=== PATIENT | male | born 1965 | race Caucasian/White ===

== ENCOUNTER → 2020-10-18 | Outpatient (CLI) | payer MEDICARE ==
[2020-10-18 16:20] LABS: Basophils # (A) 0.1 k/uL (0-0.2); Basophils % (A) 1 %; Eosinophils % (A) 1 %; HCT 46.4 % (39.0-53.0); HGB 16.4 gm/dL (13.0-17.5); Lymphocytes # (A) 1.2 k/uL (1.0-4.8); Lymphocytes % (A) 15 %; MCH 37.7 pg (25.0-35.0); MCHC 35.3 g/dL (31.0-37.0); MCV 106.7 fL (80.0-100.0); Macrocytosis Slight; Mean Platelet Volume 8.2; Monocytes # (A) 0.6 k/uL (0-1.0); Monocytes % (A) 7 %; Neutrophils % (A) 76 %; Platelet Count 163 k/uL (150-450); RBC 4.35 m/uL (4.30-5.90); RDW 12.1 % (11.5-15.5); WBC 7.9 k/uL (3.8-10.6)
[2020-10-18 16:22] LABS: Appearance,Urine Clear (Clear); Bilirubin,Urine Negative (Negative); Blood,Urine Negative (Negative); Color,Urine Light Yellow; Glucose,Urine (UA) Negative (Negative); Ketones,Urine Negative (Negative); Leukocyte Esterase,Urine Negative (Negative); Nitrite,Urine Negative (Negative); Protein,Urine Trace (Negative); Specific Gravity,Urine 1.005 (1.001-1.035); Urobilinogen,Urine <2.0 mg/dL (<2.0)
[2020-10-18 16:29] LABS: Partial Thromboplastin Time 25.2 sec (22.0-30.0); Prothrombin Time 10.5 sec (9.0-12.0)
[2020-10-18 16:39] LABS: African American GFR (CKD) >90 (>60 ml/min/1.73 sqM); Anion Gap 6 mmol/L; Blood Urea Nitrogen 4 mg/dL (9-20); Carbon Dioxide 27 mmol/L (22-30); Chloride 98 mmol/L (98-107); Non-African American GFR(CKD) >90 (>60 ml/min/1.73 sqM); Potassium 4.1 mmol/L (3.5-5.1); Sodium 131 mmol/L (137-145)
== END | disposition home or self-care (01) ==
LOC: LABPAT 15:42
PROVIDERS: ATTEND Thoracic Surgery (Cardiothoracic Vascular Surgery)
DX: Z01.812 Encounter for preprocedural laboratory examination (principal); C34.90 Malignant neoplasm of unspecified part of unspecified bronchus or lung; Z20.822 Contact with and (suspected) exposure to COVID-19
CPT/HCPCS: 86900; 86901; 80051; 82565; 84520; 85025; 85610; 85730; 86850; 81003; 87086; 36415; U0003; C9803; U0005

== ENCOUNTER 2020-10-24 07:14 | Inpatient (IN) | payer MEDICARE ==
[2020-10-21 12:16] VITALS: BMI 25.8
[~2020-10-24 07:14] MED LIST: DEXAMETHASONE SOD PHOSPHATE 4 MG/ML 1 ML VIAL IV ONE; HYDROmorphone 0.5 MG/0.5 ML SYRINGE IVP PRN; LACTATED RINGERS 1,000 ML IV SCH; ONDANSETRON 4 MG/2 ML VIAL IVP ONE
[2020-10-24] MEDS ORDERED: MIDAZOLAM 2 MG/2 ML VIAL IVP ONE (08:09)
[2020-10-24] MEDS ORDERED: fentaNYL (PF) 50 MCG/ML 2 ML AMP IVP ONE (08:29)
[2020-10-24] MEDS ORDERED: SUCCINYLCHOLINE CHLORIDE 100 MG/5 ML SYR IV ONE (08:55)
[2020-10-24] MEDS ORDERED: fentaNYL (PF) 50 MCG/ML 2 ML AMP ONE (08:55)
[2020-10-24] MEDS ORDERED: PROPOFOL 10 MG/ML 20 ML VIAL IV ONE (08:55)
[2020-10-24] MEDS ORDERED: HYDROmorphone (PF) 1 MG/ML ONE (08:55)
[2020-10-24] MEDS ORDERED: SODIUM CHLORIDE 0.9% (PF) 10 ML VIAL ONE (08:55)
[2020-10-24] MEDS ORDERED: LIDOCAINE 1% INJ 10MG/ML (20 ML MDV) ONE (08:55)
[2020-10-24] MEDS ORDERED: KETAMINE 10 MG/ML 20 ML VIAL ONE (08:55)
[2020-10-24] MEDS ORDERED: NEOSTIGMINE 1 MG/ML 10 ML VIAL ONE (08:55)
[2020-10-24] MEDS ORDERED: GLYCOPYRROLATE 0.2 MG/ML 2 ML VIAL ONE (08:55)
[2020-10-24] MEDS ORDERED: ROCURONIUM 10 MG/ML (5 ML VIAL) IV ONE (08:55)
[2020-10-24] MEDS ORDERED: ROPIVACAINE 5 MG/ML 30 ML VIAL ONE (08:55)
[2020-10-24] MEDS ORDERED: MIDAZOLAM 2 MG/2 ML VIAL ONE (08:55)
[2020-10-24] MEDS ORDERED: DEXAMETHASONE SOD PHOSPHATE 4 MG/ML 1 ML VIAL ONE (08:55)
--- NOTE | 2020-10-24 09:08 | P.ANPRN ---
Procedure Note - Anesthesia - Nerve Block Performed Right Erector Spinae Single Time Out Performed: Yes Date of Procedure: 10/24/20 Procedure Start Time: : Procedure Stop Time: :35 Location of Patient: PreOp Indication: Requested by Surgeon Specifically requested for management of pain by DrMiranda: Colt oHrta Sedation Type: Sedate with meaningful contact maintained Preparation: Sterile Prep Position: Prone Needle Types: Pajunk Needle Gauge: 21 Ultrasound used to visualize needle placement: Yes Ultrasound used to observe medication spread: Yes Injectate: 0.5% Ropivacaine (see comment for volume) (20 ml +10 ml NS + Dexamethason 4 mg) Resistance on Injection: Normal Image Stored and Saved: Yes Events: Uneventful and Well Tolerated
[2020-10-24] MEDS ORDERED: LACTATED RINGERS 1,000 ML IV ONE (09:48)
[2020-10-24] MEDS ORDERED: BUPIVACAINE (PF) 0.5% 30 ML VIAL SQ ONE ×3 (09:51)
--- NOTE | 2020-10-24 10:27 | P.OP ---
Date of Procedure: 10/24/20 Preoperative Diagnosis: Enlarging cavitary nodule right upper lobe Postoperative Diagnosis: Same Procedure(s) Performed: Thoracoscopic wedge resection nodule right upper lobe Anesthesia: GETA Surgeon: Colt Horta Estimated Blood Loss (ml): 20 IV fluids (ml): 300 Pathology: other (Wedge resection nodule right upper lobe sent for permanent pathology as well as culture including routine anaerobic AFB and fungus) Condition: stable Disposition: PACU Indications for Procedure: 55-year-old male with enlarging cavitary nodule right upper lobe Operative Findings: Lung compliance was somewhat diminished. There were a focal adhesions of the visceral pleural to the parietal pleura at the level of the nodule. Generous wedge resection was performed in the specimen removed in an Endo Catch bag and cut on the back table. The area in question was anthracotic with a small central cavitation. No gross tumor was noted. Cultures were sent and case was discussed with the pathologist prior to sending to pathology. Staple lines were intact. Description of Procedure: Patient was brought to the operating room, placed supine on the operating table, anesthetized and intubated with a double-lumen endotracheal tube. Tube was positioned with fiberoptic bronchoscopy and secured. Patient was turned in the left lateral decubitus position and the right chest sterilely prepped and draped. 3 one-inch incisions were made in the right chest and the video thoracoscope was introduced. The chest cavity was explored with the findings as noted above. Wedge resection of the area in question was performed with multiple firings of an Endo CHETNA stapler. The specimen was placed in an Endo Catch bag and removed onto the back table where it was examined and cut. Cultures were obtained and the pathology specimen was sent for permanent section after discussion with the pathologist. 28-[place] chest tube was placed through separate stab incision and positioned posterior apically. Incisions were closed with layers of Vicryl suture. Rib blocks were performed at the level of the incisions dry sterile dressings were applied. Chest tube was connected connected to a Pleur-evac and the patient was transferred to recovery area in stable condition.
--- NOTE | 2020-10-24 11:03 | XR ---
EXAMINATION TYPE: XR chest 1V portable DATE OF EXAM: 10/24/2020 COMPARISON: CT chest 07/30/2020 HISTORY: Status post VATS TECHNIQUE: Single frontal view of the chest is obtained. FINDINGS: There is a right-sided chest tube with the distal tip of the apex of the right hemithorax. Subcutaneous edema is present locally. No evident pneumothorax. Cardiac mediastinal silhouette is wi thin normal limits. Patchy basilar density is noted. IMPRESSION: Postop changes, probable basilar atelectasis. Chest tube placement as described.
[2020-10-24] MEDS ORDERED: LORazepam 2 MG/ML INJ IV PRN ×4 (11:17)
[2020-10-24] MEDS: KETOROLAC 15 MG/ML 1 ML VIAL IVP SCH ×3 (11:59→23:12)
[2020-10-24] MEDS ORDERED: ACETAMINOPHEN TAB 325 MG TAB PO PRN (12:50)
[2020-10-24] MEDS ORDERED: ONDANSETRON 4 MG/2 ML VIAL IVP PRN (12:50)
[2020-10-24] MEDS ORDERED: IPRATROPIUM-ALBUTEROL 3 ML NEB IH PRN (12:50)
[2020-10-24] MEDS ORDERED: DEXTROSE 5%-0.45% NACL 1,000 ML IV SCH (12:50)
[2020-10-24] MEDS: THIAMINE 100 MG TAB PO SCH (17:00)
[2020-10-24] MEDS: HEPARIN SODIUM,PORCINE/PF 5,000 UNIT/0.5 ML SYRINGE SQ SCH ×2 (17:00→23:12)
[2020-10-24] MEDS: IPRATROPIUM-ALBUTEROL 3 ML NEB IH SCH ×3 (17:18→20:12)
[2020-10-24] MEDS: HYDROcodone/APAP 5-325MG 1 EACH TAB PO PRN (20:29)
[2020-10-24] MEDS: ATORVASTATIN 20 MG TAB PO SCH (21:51)
[2020-10-25] MEDS: HYDROcodone/APAP 5-325MG 1 EACH TAB PO PRN ×3 (03:53→20:13)
[2020-10-25] MEDS: KETOROLAC 15 MG/ML 1 ML VIAL IVP SCH ×4 (05:39→23:08)
[2020-10-25] MEDS: PANTOPRAZOLE 40 MG TABLET PO SCH (05:39)
[2020-10-25] MEDS: THIAMINE 100 MG TAB PO SCH ×2 (05:39→16:43)
[2020-10-25 07:52] LABS: Basophils % (A) 0 %; Eosinophils # (A) 0.1 k/uL (0-0.7); Eosinophils % (A) 0 %; HCT 43.5 % (39.0-53.0); HGB 14.8 gm/dL (13.0-17.5); Lymphocytes # (A) 1.2 k/uL (1.0-4.8); Lymphocytes % (A) 9 %; MCH 36.8 pg (25.0-35.0); MCHC 34.1 g/dL (31.0-37.0); MCV 107.9 fL (80.0-100.0); Macrocytosis Moderate; Mean Platelet Volume 9.4; Monocytes % (A) 7 %; Neutrophils # (A) 11.5 k/uL (1.3-7.7); Neutrophils % (A) 83 %; Platelet Count 182 k/uL (150-450); RBC 4.03 m/uL (4.30-5.90)
[2020-10-25 08:03] LABS: African American GFR (CKD) >90 (>60 ml/min/1.73 sqM); Anion Gap 4 mmol/L; Blood Urea Nitrogen 13 mg/dL (9-20); Calcium 9.2 mg/dL (8.4-10.2); Carbon Dioxide 27 mmol/L (22-30); Chloride 103 mmol/L (98-107); Glucose 153 mg/dL (74-99); Non-African American GFR(CKD) >90 (>60 ml/min/1.73 sqM); Potassium 4.5 mmol/L (3.5-5.1); Sodium 134 mmol/L (137-145)
[2020-10-25] MEDS: IPRATROPIUM-ALBUTEROL 3 ML NEB IH SCH ×4 (08:03→20:26)
[2020-10-25] MEDS: HEPARIN SODIUM,PORCINE/PF 5,000 UNIT/0.5 ML SYRINGE SQ SCH ×3 (08:47→23:08)
--- NOTE | 2020-10-25 08:47 | XR ---
EXAMINATION TYPE: XR chest 2V DATE OF EXAM: 10/25/2020 COMPARISON: Chest x-ray 10/24/2020 HISTORY: Chest tube, post wedge resection TECHNIQUE: Frontal and lateral views of the chest are obtained. FINDINGS: Some increased densities present in the right upper lobe which has developed in the interv al. Chest tube is stable. Cardiac mediastinal silhouette is unchanged. Subcutaneous emphysema is agai n noted. There are overlying leads. The aorta is dense. IMPRESSION: There may be right upper lobe atelectasis, correlate for pneumonia. Right-sided chest tu be is in place, no sizable pneumothorax or pleural effusion.
[2020-10-25] MEDS: atenoloL 25 MG TAB PO SCH (09:04)
[2020-10-25] MEDS: MULTIVITAMINS, THERA 1 EACH TAB PO SCH (09:04)
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
--- NOTE | 2020-10-25 15:25 | XR ---
EXAMINATION TYPE: XR chest 2V DATE OF EXAM: 10/25/2020 COMPARISON: Chest x-ray 10/25/2020 at earlier time HISTORY: Status post chest tube removal TECHNIQUE: Frontal and lateral views of the chest are obtained. FINDINGS: Moderate-sized right-sided pneumothorax is present status post right chest tube removal. S ubcutaneous emphysema is again seen. No evident effusion. No evident tension. Patchy density present in the lung bases, right upper lobe area cardiac mediastinal silhouette is stable. IMPRESSION: Right-sided pneumothorax has developed following chest tube removal A Red level critical message alert has been initiated for Kim Cope via the [employer] Results System on 10/25/2020 3:23 PM. This message alert has been sent to Kim Cope via the prefe rences provided by the clinician for the receipt of Radiology Critical Findings. Message ID [id number].
--- NOTE | 2020-10-25 16:07 | XR ---
EXAMINATION TYPE: XR chest 2V DATE OF EXAM: 10/25/2020 COMPARISON: Chest x-ray same dated earlier time HISTORY: Pneumothorax TECHNIQUE: Frontal and lateral views of the chest are obtained. FINDINGS: There has been progression in subcutaneous emphysema as compared to prior exam. Right-side d pneumothorax shows a similar appearance. No other significant interval change. IMPRESSION: Moderate size right-sided thorax is described is similar in appearance.
[2020-10-25] MEDS: ATORVASTATIN 20 MG TAB PO SCH (20:13)
[2020-10-26] MEDS: HYDROcodone/APAP 5-325MG 1 EACH TAB PO PRN ×3 (00:09→08:46)
[2020-10-26 03:31] VITALS: RESP 18
[2020-10-26] MEDS: KETOROLAC 15 MG/ML 1 ML VIAL IVP SCH ×2 (06:13→12:08)
[2020-10-26] MEDS: THIAMINE 100 MG TAB PO SCH (06:14)
[2020-10-26] MEDS: PANTOPRAZOLE 40 MG TABLET PO SCH (06:14)
[2020-10-26] MEDS: IPRATROPIUM-ALBUTEROL 3 ML NEB IH SCH ×2 (08:03→11:37)
--- NOTE | 2020-10-26 08:13 | XR ---
EXAMINATION TYPE: XR chest 2V DATE OF EXAM: 10/26/2020 COMPARISON: 10/25/2020 HISTORY: 55 years Male. STUDY INDICATION GIVEN: pneumothorax . TECHNIQUE: Frontal lateral chest radiographs IMPRESSION: Moderate right size pneumothorax, slightly decreased in the interval. Stable right patchy opacities w hich could represent infection, contusion or atelectasis, correlation with history recommended. Left lung base subsegmental atelectatic changes with no significant change. Significant pleural effusion seen. Normal cardiomediastinal silhouette seen. Right chest wall and right neck subcutaneous emphysema and edema with no significant change in appear ance. Osseous structures appear similar to prior study.
[2020-10-26 08:24] VITALS: BP 175/86; PULSE 73; TEMP 98
[2020-10-26] MEDS: atenoloL 25 MG TAB PO SCH (08:46)
[2020-10-26] MEDS: HEPARIN SODIUM,PORCINE/PF 5,000 UNIT/0.5 ML SYRINGE SQ SCH (08:46)
[2020-10-26] MEDS: MULTIVITAMINS, THERA 1 EACH TAB PO SCH (08:47)
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
== END 2020-10-26 12:28 | disposition home or self-care (01) | DRG 168 ==
LOC: 2ORMAIN 07:14 → 3SCARD 10:30
PROVIDERS: ADMIT Thoracic Surgery (Cardiothoracic Vascular Surgery); ATTEND Thoracic Surgery (Cardiothoracic Vascular Surgery)
DX: R91.1 Solitary pulmonary nodule (principal); J93.9 Pneumothorax, unspecified; E78.5 Hyperlipidemia, unspecified; I10 Essential (primary) hypertension; J44.9 Chronic obstructive pulmonary disease, unspecified; Z79.899 Other long term (current) drug therapy; Z80.9 Family history of malignant neoplasm, unspecified; Z87.891 Personal history of nicotine dependence; Z20.822 Contact with and (suspected) exposure to COVID-19
CPT/HCPCS: 64999; 71045; 71046; 76942; 80048; 84295; 85025; 86850; 86900; 86901; 87070; 87075; 87205; 87635; 88307; 88312; 94640; 94760

== ENCOUNTER → 2020-10-28 | Outpatient (CLI) | payer MEDICARE ==
--- NOTE | 2020-10-28 13:39 | XR ---
EXAMINATION TYPE: XR chest 2V DATE OF EXAM: 10/28/2020 HISTORY: Postoperative right upper lobe wedge resection COMPARISON: 10/26/2020 TECHNIQUE: Single view of the chest is submitted. FINDINGS: Right-sided pneumothorax persists although is slightly smaller in size and is estimated at 15%. Subcu taneous emphysema persists. There is no evidence for focal infiltrate. The heart is stable. Hilar and mediastinal structures are within normal limits. Degenerative changes are seen of the dorsal spine. IMPRESSION: 1. Right-sided pneumothorax persists although is slightly smaller in size and is estimated at 15%. S ubcutaneous emphysema persists.
== END | disposition home or self-care (01) ==
LOC: RADXRMAIN 13:04
PROVIDERS: ATTEND Nurse Practitioner Family
DX: Z48.813 Encounter for surgical aftercare following surgery on the respiratory system (principal); J95.811 Postprocedural pneumothorax; J43.9 Emphysema, unspecified
CPT/HCPCS: 71046

== ENCOUNTER 2020-10-29 12:57 | Inpatient (IN) | payer MEDICARE ==
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
[2020-10-29 13:57] LABS: Basophils % (A) 0 %; Eosinophils # (A) 0.1 k/uL (0-0.7); Eosinophils % (A) 1 %; HCT 43.2 % (39.0-53.0); HGB 14.1 gm/dL (13.0-17.5); Lymphocytes # (A) 1.1 k/uL (1.0-4.8); Lymphocytes % (A) 14 %; MCH 35.5 pg (25.0-35.0); MCHC 32.7 g/dL (31.0-37.0); MCV 108.7 fL (80.0-100.0); Macrocytosis Moderate; Mean Platelet Volume 8.9; Monocytes # (A) 0.4 k/uL (0-1.0); Monocytes % (A) 6 %; Neutrophils # (A) 6.1 k/uL (1.3-7.7); Neutrophils % (A) 78 %; Platelet Count 208 k/uL (150-450); RBC 3.97 m/uL (4.30-5.90); RDW 11.8 % (11.5-15.5); WBC 7.9 k/uL (3.8-10.6)
[2020-10-29 14:06] LABS: INR 0.9 (<1.2); Partial Thromboplastin Time 22.7 sec (22.0-30.0); Prothrombin Time 9.6 sec (9.0-12.0)
[2020-10-29 14:15] LABS: ALT 27 U/L (4-49); AST 31 U/L (17-59); African American GFR (CKD) >90 (>60 ml/min/1.73 sqM); Albumin 3.8 g/dL (3.5-5.0); Alkaline Phosphatase 83 U/L (38-126); Anion Gap 5 mmol/L; Blood Urea Nitrogen 10 mg/dL (9-20); Calcium 9.1 mg/dL (8.4-10.2); Carbon Dioxide 28 mmol/L (22-30); Chloride 103 mmol/L (98-107); Glucose 114 mg/dL (74-99); Non-African American GFR(CKD) >90 (>60 ml/min/1.73 sqM); Sodium 136 mmol/L (137-145); Total Bilirubin 0.5 mg/dL (0.2-1.3); Total Protein 6.8 g/dL (6.3-8.2)
[2020-10-29] MEDS ORDERED: NALOXONE 0.4 MG/ML 1 ML VIAL IV PRN (14:23)
--- NOTE | 2020-10-29 14:24 | XR ---
EXAMINATION TYPE: XR chest 2V DATE OF EXAM: 10/29/2020 COMPARISON: 10/28/2020 TECHNIQUE: PA and lateral views submitted. HISTORY: Difficulty breathing FINDINGS: Diffuse subcutaneous soft tissue emphysema markedly worsened from prior exam. Right-sided pneumothora x now measuring approximately 25% and has increased from prior exam with no mediastinal deviation. Th ere is a pneumomediastinum and pneumopericardium. Right perihilar infiltrate noted. IMPRESSION: 1. Marked progression of subcutaneous emphysema with increased size of the right-sided pneumothorax n ow measuring approximately 25%. 2. Interval development of pneumomediastinum and pneumopericardium.
[2020-10-29] MEDS: SODIUM CHLORIDE 0.9% 1,000 ML IV SCH (14:34)
[2020-10-29] MEDS ORDERED: LIDOCAINE 1% INJ 10MG/ML (20 ML MDV) SQ ONE (14:59)
[2020-10-29] MEDS: HYDROmorphone 0.5 MG/0.5 ML SYRINGE IVP PRN ×3 (15:12→18:42)
--- NOTE | 2020-10-29 15:21 | ED ---
Medical Decision Making - Medical Decision Making Thoracic surgery had requested Thoravent placement in the emergency department. I did obtain consent and placed in the emergency department. - Lab Data Result diagrams: 10/29/20 13:43 10/29/20 13:43 Lab Results 10/29/20 10/29/20 10/29/20 Range/Units 13:43 13:43 13:43 WBC 7.9 (3.8-10.6) k/uL RBC 3.97 L (4.30-5.90) m/uL Hgb 14.1 (13.0-17.5) gm/dL Hct 43.2 (39.0-53.0) % MCV 108.7 H (80.0-100.0) fL MCH 35.5 H (25.0-35.0) pg MCHC 32.7 (31.0-37.0) g/dL RDW 11.8 (11.5-15.5) % Plt Count 208 (150-450) k/uL MPV 8.9 Neutrophils % 78 % Lymphocytes % 14 % Monocytes % 6 % Eosinophils % 1 % Basophils % 0 % Neutrophils # 6.1 (1.3-7.7) k/uL Lymphocytes # 1.1 (1.0-4.8) k/uL Monocytes # 0.4 (0-1.0) k/uL Eosinophils # 0.1 (0-0.7) k/uL Basophils # 0.0 (0-0.2) k/uL Macrocytosis Moderate PT 9.6 (9.0-12.0) sec INR 0.9 (<1.2) APTT 22.7 (22.0-30.0) sec Sodium 136 L (137-145) mmol/L Potassium 5.0 (3.5-5.1) mmol/L Chloride 103 (98-107) mmol/L Carbon Dioxide 28 (22-30) mmol/L Anion Gap 5 mmol/L BUN 10 (9-20) mg/dL Creatinine 0.53 L (0.66-1.25) mg/dL Est GFR (CKD-EPI)AfAm >90 (>60 ml/min/1.73 sqM) Est GFR (CKD-EPI)NonAf >90 (>60 ml/min/1.73 sqM) Glucose 114 H (74-99) mg/dL Calcium 9.1 (8.4-10.2) mg/dL Magnesium 2.0 (1.6-2.3) mg/dL Total Bilirubin 0.5 (0.2-1.3) mg/dL AST 31 (17-59) U/L ALT 27 (4-49) U/L Alkaline Phosphatase 83 (38-126) U/L Total Protein 6.8 (6.3-8.2) g/dL Albumin 3.8 (3.5-5.0) g/dL Disposition Clinical Impression: Pneumothorax, Subcutaneous emphysema Disposition: ADMITTED IP TO THIS [facility] Condition: Stable Procedures - Chest Tube Insertion Consent Obtained: written consent Side of Procedure: right Indication: Pneumothorax Placed on monitor/pulse oximetry: Yes Site Prep: Chloroprep Local Anesthesia: Lidocaine 1% Amount (mLs): 7 Insertion Site: Other (Intercostal space, midclavicular line) Scalpel: #11 Open into Pleural Space Using: Trocar Tube Size (Vincentian): Other (9-Vincentian thoravent) Returns: Air Sutured in Place: No Attached to Suction: Yes Type of Suction: Pleuravac Repeat X-ray Results: Lung Inflated Patient Tolerated Procedure: well
--- NOTE | 2020-10-29 15:49 | XR ---
EXAMINATION TYPE: XR chest 1V portable DATE OF EXAM: 10/29/2020 COMPARISON: 10/29/2020 HISTORY: Post chest tube placement TECHNIQUE: Single frontal view of the chest is obtained. FINDINGS: Chest tube noted with resolution of right-sided pneumothorax. There is severe subcutaneous diffuse emphysema, pneumomediastinum and pneumopericardium stable. A tiny right pleural effusion not ed and there is right perihilar atelectasis or interval treatment. IMPRESSION: 1. Interval resolution of right-sided pneumothorax post chest tube placement. 2. Diffuse subcutaneous emphysema, pneumomediastinum, and pneumopericardium.
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
[2020-10-29] MEDS ORDERED: LORazepam 2 MG/ML INJ IV PRN ×3 (17:49)
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
[2020-10-29] MEDS: HYDROcodone/APAP 5-325MG 1 EACH TAB PO SCH (20:55)
[2020-10-29] MEDS: ATORVASTATIN 20 MG TAB PO SCH (20:55)
[2020-10-29] MEDS: HEPARIN SODIUM,PORCINE/PF 5,000 UNIT/0.5 ML SYRINGE SQ SCH (20:55)
[2020-10-29 21:26] LABS: Appearance,Urine Clear (Clear); Bilirubin,Urine Negative (Negative); Blood,Urine Negative (Negative); Color,Urine Yellow; Glucose,Urine (UA) Negative (Negative); Ketones,Urine Negative (Negative); Leukocyte Esterase,Urine Negative (Negative); Nitrite,Urine Negative (Negative); PH, Urine 6.5 (5.0-8.0); Protein,Urine Negative (Negative); Specific Gravity,Urine 1.016 (1.001-1.035); Urobilinogen,Urine <2.0 mg/dL (<2.0)
[2020-10-30] MEDS: HYDROmorphone 0.5 MG/0.5 ML SYRINGE IVP PRN ×7 (00:36→23:21)
[2020-10-30] MEDS: SODIUM CHLORIDE 0.9% 1,000 ML IV SCH ×2 (03:52→16:46)
[2020-10-30] MEDS: PANTOPRAZOLE 40 MG TABLET PO SCH (06:33)
[2020-10-30] MEDS: THIAMINE 100 MG TAB PO SCH ×2 (06:33→16:42)
[2020-10-30 07:51] LABS: Basophils % (A) 0 %; Eosinophils # (A) 0.1 k/uL (0-0.7); Eosinophils % (A) 1 %; HCT 42.3 % (39.0-53.0); HGB 13.8 gm/dL (13.0-17.5); Lymphocytes # (A) 1.5 k/uL (1.0-4.8); Lymphocytes % (A) 19 %; MCH 35.7 pg (25.0-35.0); MCHC 32.7 g/dL (31.0-37.0); MCV 109.1 fL (80.0-100.0); Macrocytosis Moderate; Mean Platelet Volume 8.7; Monocytes # (A) 0.3 k/uL (0-1.0); Monocytes % (A) 4 %; Neutrophils # (A) 5.9 k/uL (1.3-7.7); Neutrophils % (A) 74 %; Platelet Count 224 k/uL (150-450); RBC 3.88 m/uL (4.30-5.90); RDW 11.9 % (11.5-15.5); WBC 7.9 k/uL (3.8-10.6)
[2020-10-30 08:01] LABS: African American GFR (CKD) >90 (>60 ml/min/1.73 sqM); Anion Gap 7 mmol/L; Blood Urea Nitrogen 8 mg/dL (9-20); Calcium 9.3 mg/dL (8.4-10.2); Carbon Dioxide 25 mmol/L (22-30); Chloride 103 mmol/L (98-107); Glucose 120 mg/dL (74-99); Non-African American GFR(CKD) >90 (>60 ml/min/1.73 sqM); Potassium 4.5 mmol/L (3.5-5.1); Sodium 135 mmol/L (137-145)
--- NOTE | 2020-10-30 08:14 | XR ---
EXAMINATION TYPE: XR chest 1V portable DATE OF EXAM: 10/30/2020 COMPARISON: Chest x-ray 10/29/2020 HISTORY: Chest tube TECHNIQUE: Single frontal view of the chest is obtained. FINDINGS: Extensive subcutaneous emphysema, thoracic vent catheter are again noted. Small apical pne umothorax is suspected on the right. There is no pleural effusion. Cardiac mediastinal sweat is stabl e. Subsegmental basilar atelectatic changes persist. Suspect there is pneumomediastinum, pneumoperica rdium. IMPRESSION: Findings are similar to prior exam..
[2020-10-30] MEDS: atenoloL 25 MG TAB PO SCH (08:24)
[2020-10-30] MEDS: HEPARIN SODIUM,PORCINE/PF 5,000 UNIT/0.5 ML SYRINGE SQ SCH ×2 (08:24→21:01)
[2020-10-30] MEDS ORDERED: NON FORMULARY DRUG (Vitamin B Complex [Vitamin B Complex] 1 EACH Capsule) PO SCH (09:00)
[2020-10-30] MEDS ORDERED: NON FORMULARY DRUG (Omega-3 Fatty Acids/Fish Oil [Fish Oil 1,000 Mg Softgel] 1 EACH Capsul PO SCH (09:00)
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
[2020-10-30] MEDS: HYDROcodone/APAP 5-325MG 1 EACH TAB PO SCH ×3 (09:39→21:01)
[2020-10-30] MEDS: FOLIC ACID 1 MG TAB PO SCH (12:07)
[2020-10-30] MEDS: MULTIVITAMINS, THERA 1 EACH TAB PO SCH (12:07)
--- NOTE | 2020-10-30 12:52 | P.PN ---
Subjective Patient is a 55-year-old male admitted for spontaneous pneumothorax patient's chest tube was removed and patient has aThoravent at this time, patient is status post thoracoscopic wedge resection resection. Patient does have nicotine abuse history and he recently quit smoking. Constitutional: Denied any fatigue denied any fever. Cardio vascular: denied any chest pain, palpitations Gastrointestinal denied any nausea vomiting Pulmonary: Denied any shortness of breath cough Neurologic denied any new focal deficits All inpatient medications were reviewed and appropriate changes in these medications as dictated in the interval history and assessment and plan. PHYSICAL EXAMINATION: GENERAL: The patient is alert and oriented x3, not in any acute distress. Well developed, well nourished. HEENT: Pupils are round and equally reacting to light. EOMI. No scleral icterus. No conjunctival pallor. Normocephalic, atraumatic. No pharyngeal erythema. No thyromegaly. CARDIOVASCULAR: S1 and S2 present. No murmurs, rubs, or gallops. PULMONARY: Chest is clear to auscultation, no wheezing, crackles secondary to subacute illness and physical ABDOMEN: Soft, nontender, nondistended, normoactive bowel sounds. No palpable organomegaly. MUSCULOSKELETAL: No joint swelling or deformity. EXTREMITIES: No cyanosis, clubbing, or pedal edema. NEUROLOGICAL: Gross neurological examination did not reveal any focal deficits. SKIN: No rashes. He has significant subcu denies emphysema and crackles in the right side of the lung Assessment and plan -Right-sided pneumothorax status post thoravent ^ chest tube was reported -Extensive subcutaneous emphysema -Hypertension next and hyperlipidemia Peripheral artery disease -Emphysema -Alcohol use presently doesn't have any withdrawals at this time patient recent drink was more than a week ago all call withdrawal precautions will be discontinued -DVT prophylaxis: Early ambulation Objective - Vital Signs Vital signs: Vital Signs Temp 97.6 F 10/30/20 08:00 Pulse 95 10/30/20 08:00 Resp 18 10/30/20 08:00 BP 127/76 10/30/20 08:00 Pulse Ox 98 10/30/20 08:00 Intake & Output 10/29/20 10/30/20 10/30/20 18:59 06:59 18:59 Intake Total 200 10 540 Output Total 0 650 Balance 200 -640 540 Weight 81.647 kg 81.6 kg Intake: Intake, IV Titration 10 Amount Sodium Chloride 0.9% 1, 10 000 ml @ 75 mls/hr IV . [id number] [facility] Rx#:[id number] Oral 200 540 Output: Chest Tube Drainage 0 Thora-Vent Right 0 Urine 650 Other: Voiding Method Toilet Toilet Urinal Urinal # Voids 1 # Bowel Movements 1 - Labs CBC & Chem 7: 10/30/20 07:28 10/30/20 07:28 Labs: Abnormal Lab Results - Last 24 Hours (Table) 10/29/20 10/29/20 10/30/20 Range/Units 13:43 13:43 07:28 RBC 3.97 L 3.88 L (4.30-5.90) m/uL MCV 108.7 H 109.1 H (80.0-100.0) fL MCH 35.5 H 35.7 H (25.0-35.0) pg Sodium 136 L (137-145) mmol/L BUN (9-20) mg/dL Creatinine 0.53 L (0.66-1.25) mg/dL Glucose 114 H (74-99) mg/dL 10/30/20 Range/Units 07:28 RBC (4.30-5.90) m/uL MCV (80.0-100.0) fL MCH (25.0-35.0) pg Sodium 135 L (137-145) mmol/L BUN 8 L (9-20) mg/dL Creatinine 0.49 L (0.66-1.25) mg/dL Glucose 120 H (74-99) mg/dL
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
[2020-10-30] MEDS: AZITHROMYCIN 500 MG TAB PO SCH (16:42)
[2020-10-30] MEDS: ATORVASTATIN 20 MG TAB PO SCH (21:01)
[2020-10-30 23:27] VITALS: RESP 16
[2020-10-31] MEDS: HYDROmorphone 0.5 MG/0.5 ML SYRINGE IVP PRN ×4 (03:16→13:29)
[2020-10-31] MEDS: PANTOPRAZOLE 40 MG TABLET PO SCH (06:29)
[2020-10-31] MEDS: THIAMINE 100 MG TAB PO SCH (06:29)
--- NOTE | 2020-10-31 07:53 | XR ---
EXAMINATION TYPE: XR chest 2V DATE OF EXAM: 10/31/2020 COMPARISON: 10/30/2020 TECHNIQUE: PA and lateral views submitted. HISTORY: Pneumothorax FINDINGS: There is a chest tube in place with increasing right-sided pneumothorax measuring approximately 15-20 %. Diffuse subcutaneous emphysema patchy right-sided infiltrate stable. Pneumomediastinum and pneumop ericardium. The improvement relative to prior exam. IMPRESSION: 1. Increased right-sided pneumothorax measuring approximately 15-20%. 2. Diffuse subcutaneous emphysema. 3. Patchy right-sided infiltrate stable
[2020-10-31] MEDS: HEPARIN SODIUM,PORCINE/PF 5,000 UNIT/0.5 ML SYRINGE SQ SCH (08:49)
[2020-10-31] MEDS: HYDROcodone/APAP 5-325MG 1 EACH TAB PO SCH (08:50)
[2020-10-31] MEDS: atenoloL 25 MG TAB PO SCH (08:50)
[2020-10-31] MEDS: FOLIC ACID 1 MG TAB PO SCH (08:50)
[2020-10-31] MEDS: AZITHROMYCIN 500 MG TAB PO SCH (08:50)
[2020-10-31] MEDS: MULTIVITAMINS, THERA 1 EACH TAB PO SCH (08:50)
[2020-10-31] MEDS: SODIUM CHLORIDE 0.9% 1,000 ML IV SCH (08:51)
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
[2020-10-31 14:11] VITALS: BP 118/73; PULSE 78; TEMP 97.3
--- NOTE | 2020-10-31 14:16 | P.DS ---
Providers Date of admission: 10/29/20 14:23 Attending physician: Isaias Aquino Consults: 10/29/20 14:23 Consult Physician Routine Consulting Provider: Andrew Cummins Consult Reason/Comments: Pneumothorax Do you want consulting provider notified?: Already Contacted Consult Physician Urgent Consulting Provider: Colt Horta Consult Reason/Comments: Pneumothorax, subcutaneous emphysema Do you want consulting provider notified?: Already Contacted Primary care physician: Tani [facility] Course: Patient is a 55-year-old male admitted for spontaneous pneumothorax patient's chest tube was removed and patient has aThoravent at this time, patient is status post thoracoscopic wedge resection resection. Patient does have nicotine abuse history and he recently quit smoking. 10/31/2020 Patient is clinically doing well still has significant obesity his emphysema mild the pneumothorax on the chest x-ray patient was evaluated by the thoracic surgery patient will keep his Thoravent and will follow-up with cardiothoracic surgery next Wednesday. Patient will be discharged today. PHYSICAL EXAMINATION: GENERAL: The patient is alert and oriented x3, not in any acute distress. Well developed, well nourished. HEENT: Pupils are round and equally reacting to light. EOMI. No scleral icterus. No conjunctival pallor. Normocephalic, atraumatic. No pharyngeal erythema. No thyromegaly. CARDIOVASCULAR: S1 and S2 present. No murmurs, rubs, or gallops. PULMONARY: Chest is clear to auscultation, no wheezing, crackles secondary to subacute illness and physical ABDOMEN: Soft, nontender, nondistended, normoactive bowel sounds. No palpable organomegaly. MUSCULOSKELETAL: No joint swelling or deformity. EXTREMITIES: No cyanosis, clubbing, or pedal edema. NEUROLOGICAL: Gross neurological examination did not reveal any focal deficits. SKIN: No rashes. He has significant subcu denies emphysema and crackles in the right side of the lung Assessment and plan -Right-sided pneumothorax status post thoravent ^ chest tube was removed, patient will be discharged to follow up with CT surgery as an outpatient -Extensive subcutaneous emphysema -Hypertension hyperlipidemia Peripheral artery disease -Emphysema Patient Condition at Discharge: Stable Plan - Discharge Summary Discharge Rx Participant: No New Discharge Prescriptions: No Action atenoloL [Tenormin] 25 mg PO DAILY Atorvastatin [Lipitor] 20 mg PO HS HYDROcodone/APAP 5-325MG [[place] 5-325] 1 tab PO TID Vitamin B Complex 1 cap PO DAILY [place]-3 Fatty Acids/Fish Oil [Fish Oil 1,000 mg Softgel] 1 cap PO DAILY Milk Thistle 150 mg PO DAILY Discharge Medication List Atorvastatin [Lipitor] 20 mg PO HS 10/21/20 [History] HYDROcodone/APAP 5-325MG [[place] 5-325] 1 tab PO TID 10/21/20 [History] Milk Thistle 150 mg PO DAILY 10/21/20 [History] [place]-3 Fatty Acids/Fish Oil [Fish Oil 1,000 mg Softgel] 1 cap PO DAILY 10/21/20 [History] Vitamin B Complex 1 cap PO DAILY 10/21/20 [History] atenoloL [Tenormin] 25 mg PO DAILY 10/21/20 [History] Follow up Appointment(s)/Referral(s): Tani Powers MD [Primary Care Provider] - 1-2 days Colt Horta MD [STAFF PHYSICIAN] - 11/06/20 2:00 pm (Please obtain a chest x-ray prior to follow-up with Dr. Colt Horta. Prescription for the chest x- ray has been given to the patient.) Ambulatory/Diagnostic Orders: XR chest 2V [RAD.AMB] Time Frame: 11/06/20, Facility: [facility], Location: [facility] Patient Instructions/Handouts: Spontaneous Pneumothorax (DC), Chest Tubes (DC) Activity/Diet/Wound Care/Special Instructions: DISCHARGE INSTRUCTIONS: 1. Minimize driving for 2 weeks, or until physician gives their ok. 2. No lifting, pushing, or pulling more than 10 pounds for 2 weeks. The physician will advise of any restriction changes. 3. Continue pain control per as needed orders. Alternate acetaminophen (Tylenol) and ibuprofen (Motrin/Advil) for pain. 4. Continue with incentive spirometry and splinting until otherwise directed by the physician. 5. Leave chest tube dressing for 48 hours. After that, remove all dressings and shower daily. 6. Routine incision care. No powders, lotions, ointments on incisions. 7. Please call surgeon/SENIOR NET PROGRAMMER for temp greater than 101 F or purulent drainage from incisions. 8. Smoking cessation counseling and program information provided. NO SMOKING. 9. Please get chest x-ray at the hospital before appointment with Dr. Horta. Please obtain a 2 view chest x-ray on 11/06/2020 Discharge Disposition: HOME SELF-CARE
--- NOTE | 2020-10-31 14:43 | ECHOF ---
Referral Reason:pneumopericardium MEASUREMENTS -------- HEIGHT: 157.5 cm WEIGHT: 81.2 kg BP: IVSd: 1.4 cm (0.6 - 1.1) LVIDd: 4.2 cm (3.9 - 5.3) LVPWd: 2.0 cm (0.6 - 1.1) IVSs: 1.9 cm LVIDs: 3.5 cm LVPWs: 2.2 cm FINDINGS -------- Sinus rhythm. Pt had lobeectomy: limited images. Overall left ventricular systolic function is low-normal with, an EF between 50 - 55 %. The RV was not well visualized. There is no pericardial effusion. CONCLUSIONS -------- 1. Pt had lobeectomy: limited images. 2. Overall left ventricular systolic function is low-normal with, an EF between 50 - 55 %. 3. The RV was not well visualized. 4. There is no pericardial effusion. [employer] ATTENDANT: Fior Calvillo RDCS
== END 2020-10-31 14:56 | disposition home or self-care (01) | DRG 919 ==
LOC: EC 12:57 → 3SCARD 14:23
PROVIDERS: ADMIT Internal Medicine; ATTEND Internal Medicine
PROC: 0W9930Z Drainage of Right Pleural Cavity with Drainage Device, Percutaneous Approach (ICD-10-PCS; principal; 2020-10-29)
DX: T81.82XA Emphysema (subcutaneous) resulting from a procedure, initial encounter (principal); J18.9 Pneumonia, unspecified organism; J95.811 Postprocedural pneumothorax; E87.1 Hypo-osmolality and hyponatremia; J43.9 Emphysema, unspecified; I73.9 Peripheral vascular disease, unspecified; Z20.822 Contact with and (suspected) exposure to COVID-19; E78.5 Hyperlipidemia, unspecified; I10 Essential (primary) hypertension; M19.90 Unspecified osteoarthritis, unspecified site; E66.9 Obesity, unspecified; Z68.25 Body mass index [BMI] 25.0-25.9, adult; Z79.891 Long term (current) use of opiate analgesic; Z79.899 Other long term (current) drug therapy; Z87.891 Personal history of nicotine dependence; Z90.2 Acquired absence of lung [part of]; Z72.89 Other problems related to lifestyle; Z87.81 Personal history of (healed) traumatic fracture; Z80.1 Family history of malignant neoplasm of trachea, bronchus and lung; Z80.8 Family history of malignant neoplasm of other organs or systems; Y83.8 Other surgical procedures as the cause of abnormal reaction of the patient, or of later complication, without mention of misadventure at the time of the procedure
CPT/HCPCS: 36415; 71045; 71046; 80048; 80053; 81003; 83735; 85025; 85610; 85730; 87635; 93005; 93306; 99291

== ENCOUNTER → 2020-11-04 | Outpatient (CLI) | payer MEDICARE ==
--- NOTE | 2020-11-04 13:59 | XR ---
EXAMINATION TYPE: XR chest 2V DATE OF EXAM: 11/04/2020 COMPARISON: Chest x-ray 10/31/2020 HISTORY: Postop, chest tube TECHNIQUE: Frontal and lateral views of the chest are obtained. FINDINGS: There is improvement in the right apical pneumothorax. Thoracic vent catheter remains in p lace. No sizable pneumothorax evident. There is extensive subcutaneous emphysema, pneumopericardium a nd pneumomediastinum change. No evident pleural effusion. Cardiac mediastinal silhouette is within no rmal limits. IMPRESSION: No significant residual pneumothorax evident. Additional findings.
== END | disposition home or self-care (01) ==
LOC: RADXRMAIN 10:41
PROVIDERS: ATTEND Thoracic Surgery (Cardiothoracic Vascular Surgery)
DX: Z48.813 Encounter for surgical aftercare following surgery on the respiratory system (principal)
CPT/HCPCS: 71046

== ENCOUNTER → 2020-11-06 | Outpatient (CLI) | payer MEDICARE ==
--- NOTE | 2020-11-06 15:40 | XR ---
EXAMINATION TYPE: XR chest 2V DATE OF EXAM: 11/06/2020 COMPARISON: Chest x-ray 11/04/2020 HISTORY: Z87.891 Personal history of nicotine dependence TECHNIQUE: Frontal and lateral views of the chest are obtained. FINDINGS: There has been removal of the chest tube. Subcutaneous emphysema persists. No evidence of pneumothorax. There is evidence of pneumomediastinum. No pleural effusion. IMPRESSION: No evident complication status post chest tube removal
== END | disposition home or self-care (01) ==
LOC: RADXRMAIN 13:37
PROVIDERS: ATTEND Nurse Practitioner Acute Care
DX: Z87.891 Personal history of nicotine dependence (principal)
CPT/HCPCS: 71046

== ENCOUNTER → 2023-06-04 | Outpatient (CLI) | payer MEDICARE, OTHER ==
--- NOTE | 2023-06-05 09:11 | PE ---
EXAMINATION TYPE: PET CT fusion skull to thigh DATE OF EXAM: 06/04/2023 CLINICAL INDICATION:Male, 57 years old with history of R91.1 PULMONARY NODULE; TECHNIQUE: Following the intravenous administration of 8.65 mCi of F-18 FDG, whole body images are performed from the skull base to the midthigh. Images are reviewed on the computer in the coronal, a xial, and sagittal planes. Reconstructed rotating images are created on independent workstation and reviewed on the computer. A non-contrast CT is performed in conjunction with the PET scan. Glucose level 98 mg/dL CT DLP: 367.25 mGycm, Automated exposure control for dose reduction was used. COMPARISON: CT 07/30/2020, PET/CT None, FINDINGS: Mediastinal SUV mean is 2.2. Hepatic parenchyma SUV mean is 2.67. SKULL BASE AND NECK: * No suspicious radiotracer activity. * Right thyroid nodule Max SUV 5.6. CHEST, MEDIASTINUM, AND HILAR REGION: Left upper lobe 16 x 12 mm nodule Max SUV 8.6. ABDOMEN AND PELVIS: No suspicious radiotracer activity. MUSCULOSKELETAL STRUCTURES: No suspicious radiotracer activity. OTHER CT: Atherosclerosis of the carotid bifurcations and coronary arteries which are severe. IMPRESSION: 1. Left upper lobe pulmonary nodule measuring 16 mm compatible with malignancy. No evidence for meta static disease at this time. 2. Right thyroid gland uptake posterior to the nodule correlate with nonemergent thyroid ultrasound and serum markers.
== END | disposition home or self-care (01) ==
LOC: RADPETMAIN 08:38
PROVIDERS: ATTEND Internal Medicine Sleep Medicine
DX: R91.1 Solitary pulmonary nodule (principal); E04.1 Nontoxic single thyroid nodule
CPT/HCPCS: 78815; A9552

== ENCOUNTER → 2023-08-04 | Outpatient (CLI) | payer MEDICARE, OTHER ==
[2023-08-04 18:26] LABS: Basophils # (A) 0.08 X 10*3/uL (0.00-0.10); Basophils % (A) 0.9 %; Eosinophils # (A) 0.08 X 10*3/uL (0.04-0.35); Eosinophils % (A) 0.9 %; HCT 40.1 % (39.6-50.0); Lymphocytes # (A) 1.93 X 10*3/uL (0.90-5.00); Lymphocytes % (A) 22.8 %; MCH 35.9 pg (27.0-32.0); MCHC 34.9 g/dL (32.0-37.0); MCV 102.8 FL (80.0-97.0); Mean Platelet Volume 9.5 FL (9.5-12.2); Monocytes # (A) 0.99 X 10*3/uL (0.20-1.00); Monocytes % (A) 11.7 %; NRBC Per 100 WBC 0 X 10*3/uL (0.00-0.01); Neutrophils # (A) 5.35 X 10*3/uL (1.80-7.70); Neutrophils % (A) 63.5 %; Platelet Count 234 X 10*3/uL (140-440); RDW 12.7 % (11.5-14.5); WBC 8.45 X 10*3/uL (4.50-10.00)
[2023-08-04 21:13] LABS: ALT 18 U/L (10-49); AST 30 U/L (14-35); Albumin 3.8 g/dL (3.8-4.9); Albumin/Globulin Ratio 1.41 Ratio (1.60-3.17); Alkaline Phosphatase 100 U/L (41-126); Blood Urea Nitrogen 4.8 mg/dL (9.0-27.0); Chloride 91 mmol/L (96-109); Globulin 2.7 g/dL (1.6-3.3); Glucose 126 mg/dL (70-110); Potassium 4.4 mmol/L (3.5-5.5); Sodium 128 mmol/L (135-145); Total Bilirubin 0.4 mg/dL (0.3-1.2); Total Protein 6.5 g/dL (6.2-8.2)
== END | disposition home or self-care (01) ==
LOC: LABWHC1 15:29
PROVIDERS: ATTEND Family Medicine
DX: L65.9 Nonscarring hair loss, unspecified (principal); I10 Essential (primary) hypertension
CPT/HCPCS: 36415; 80053; 82607; 82728; 84402; 84403; 84443; 85025

== ENCOUNTER → 2023-10-19 | Outpatient (CLI) | payer MEDICARE, OTHER | LOC: CPPFTMAIN 11:11 | PROVIDERS: ATTEND Thoracic Surgery (Cardiothoracic Vascular Surgery) | DX: R91.1 Solitary pulmonary nodule (principal) | CPT/HCPCS: 94060; 94726; 94729 ==

== ENCOUNTER → 2023-12-21 | Outpatient (CLI) | payer MEDICARE, OTHER ==
[2023-12-21 16:08] LABS: INR 1.1 (<1.2); Prothrombin Time 11.4 sec (10.0-12.5)
[2023-12-21 16:52] LABS: Appearance,Urine Clear (Clear); Bilirubin,Urine Negative (Negative); Blood,Urine Negative (Negative); Color,Urine Light Yellow; Glucose,Urine (UA) Negative (Negative); Ketones,Urine Negative (Negative); Leukocyte Esterase,Urine Negative (Negative); Nitrite,Urine Negative (Negative); PH, Urine 5.5 (5.0-8.0); Protein,Urine Trace (Negative); Specific Gravity,Urine 1.011 (1.001-1.035); Urobilinogen,Urine <2.0 mg/dL (<2.0)
[2023-12-21 18:48] LABS: HGB 14.9 g/dL (13.0-17.0); MCH 35.8 pg (27.0-32.0); MCHC 33.9 g/dL (32.0-37.0); MCV 105.8 FL (80.0-97.0); Mean Platelet Volume 9.8 FL (9.5-12.2); NRBC Per 100 WBC 0 X 10*3/uL (0.00-0.01); Platelet Count 264 X 10*3/uL (140-440); RBC 4.16 X 10*6/uL (4.40-5.60); RDW 11.9 % (11.5-14.5)
[2023-12-21 18:57] LABS: ALT 17 U/L (10-49); AST 31 U/L (14-35); Albumin 3.5 g/dL (3.8-4.9); Albumin/Globulin Ratio 1.17 Ratio (1.60-3.17); Alkaline Phosphatase 109 U/L (41-126); BUN/Creat Ratio 11.57 Ratio (12.00-20.00); Blood Urea Nitrogen 8.1 mg/dL (9.0-27.0); Calcium 8.8 mg/dL (8.7-10.3); Carbon Dioxide 26.5 mmol/L (21.6-31.8); Chloride 93 mmol/L (96-109); Glucose 107 mg/dL (70-110); Magnesium 1.9 mg/dL (1.5-2.4); Phosphorus 4.3 mg/dL (2.4-5.1); Potassium 4.9 mmol/L (3.5-5.5); Sodium 131 mmol/L (135-145); Total Bilirubin 0.4 mg/dL (0.3-1.2); Total Protein 6.5 g/dL (6.2-8.2)
== END | disposition home or self-care (01) ==
LOC: LABWHC1 14:54
PROVIDERS: ATTEND Thoracic Surgery (Cardiothoracic Vascular Surgery)
DX: I10 Essential (primary) hypertension (principal); E78.5 Hyperlipidemia, unspecified; M54.9 Dorsalgia, unspecified; F10.10 Alcohol abuse, uncomplicated; R91.1 Solitary pulmonary nodule; R68.89 Other general symptoms and signs; Z91.89 Other specified personal risk factors, not elsewhere classified
CPT/HCPCS: 36415; 80053; 81003; 83735; 84100; 85027; 85610; 85730

== ENCOUNTER → 2024-01-17 | Outpatient (CLI) | payer MEDICARE, OTHER ==
--- NOTE | 2024-01-17 13:17 | XR ---
EXAMINATION TYPE: XR chest 2V DATE OF EXAM: 01/17/2024 1:06 PM COMPARISON: 11/06/2020 CLINICAL INDICATION: Male, 58 years old with history of R91.1 NODULE UPPER LOBE LEFT LUNG; [facility] TECHNIQUE: XR chest 2V Frontal and lateral views of the chest. FINDINGS: Lungs/Pleura: There is no evidence of pleural effusion, focal consolidation, or pneumothorax. Pulmonary vascularity: Unremarkable. Heart/mediastinum: Cardiomediastinal silhouette is unremarkable. Musculoskeletal: No acute osseous pathology. IMPRESSION: No acute cardiopulmonary disease/process. [facility] Tamela Medrano, , 01/17/2024 1:15 PM
[2024-01-17 14:52] LABS: BUN/Creat Ratio 12.75 Ratio (12.00-20.00); Blood Urea Nitrogen 10.2 mg/dL (9.0-27.0); Calcium 9.1 mg/dL (8.7-10.3); Carbon Dioxide 24.3 mmol/L (21.6-31.8); Chloride 98 mmol/L (96-109); Glucose 112 mg/dL (70-110); Potassium 4.5 mmol/L (3.5-5.5); Sodium 134 mmol/L (135-145)
[2024-01-17 14:56] LABS: Basophils # (A) 0.08 X 10*3/uL (0.00-0.10); Basophils % (A) 1.2 %; Eosinophils # (A) 0.28 X 10*3/uL (0.04-0.35); Eosinophils % (A) 4.3 %; HCT 35.9 % (39.6-50.0); HGB 11.9 g/dL (13.0-17.0); Lymphocytes # (A) 1.59 X 10*3/uL (0.90-5.00); Lymphocytes % (A) 24.7 %; MCH 35.1 pg (27.0-32.0); MCHC 33.1 g/dL (32.0-37.0); MCV 105.9 FL (80.0-97.0); Mean Platelet Volume 10.4 FL (9.5-12.2); Monocytes # (A) 0.64 X 10*3/uL (0.20-1.00); Monocytes % (A) 9.9 %; NRBC Per 100 WBC 0 X 10*3/uL (0.00-0.01); Neutrophils # (A) 3.83 X 10*3/uL (1.80-7.70); Neutrophils % (A) 59.6 %; Platelet Count 468 X 10*3/uL (140-440); RBC 3.39 X 10*6/uL (4.40-5.60); RDW 12.8 % (11.5-14.5); WBC 6.44 X 10*3/uL (4.50-10.00)
== END | disposition home or self-care (01) ==
LOC: LABWHC1 12:18
PROVIDERS: ATTEND Thoracic Surgery (Cardiothoracic Vascular Surgery)
DX: R91.1 Solitary pulmonary nodule (principal)
CPT/HCPCS: 36415; 71046; 80048; 85025

== ENCOUNTER → 2024-04-20 | Outpatient (CLI) | payer MEDICARE, OTHER ==
[2024-04-20 18:33] LABS: HCT 38.2 % (39.6-50.0); HGB 12.2 g/dL (13.0-17.0); MCH 32.4 pg (27.0-32.0); MCHC 31.9 g/dL (32.0-37.0); MCV 101.3 FL (80.0-97.0); Mean Platelet Volume 9.8 FL (9.5-12.2); NRBC Per 100 WBC 0 X 10*3/uL (0.00-0.01); Platelet Count 320 X 10*3/uL (140-440); RBC 3.77 X 10*6/uL (4.40-5.60); RDW 16.6 % (11.5-14.5); WBC 8.68 X 10*3/uL (4.50-10.00)
[2024-04-20 18:45] LABS: ALT 9 U/L (10-49); AST 20 U/L (14-35); Albumin 4.3 g/dL (3.8-4.9); Albumin/Globulin Ratio 1.39 Ratio (1.60-3.17); Alkaline Phosphatase 103 U/L (41-126); BUN/Creat Ratio 11.14 Ratio (12.00-20.00); Blood Urea Nitrogen 7.8 mg/dL (9.0-27.0); Calcium 9.6 mg/dL (8.7-10.3); Carbon Dioxide 24.4 mmol/L (21.6-31.8); Chloride 94 mmol/L (96-109); Globulin 3.1 g/dL (1.6-3.3); Glucose 124 mg/dL (70-110); Potassium 5.4 mmol/L (3.5-5.5); Sodium 132 mmol/L (135-145); Total Bilirubin 0.4 mg/dL (0.3-1.2); Total Protein 7.4 g/dL (6.2-8.2)
== END | disposition home or self-care (01) ==
LOC: LABWHC1 14:00
PROVIDERS: ATTEND Family Medicine
DX: I10 Essential (primary) hypertension (principal); R73.01 Impaired fasting glucose
CPT/HCPCS: 36415; 80053; 83036; 85027